=== PATIENT | male | born 1950 | race Caucasian/White ===

== ENCOUNTER → 2019-01-02 14:23 | Day surgery (SDC) | payer BC ==
--- NOTE | 2018-12-26 20:01 | HP ---
CC: Dr. Juan Paez; Dr. Hector Grace * ADMITTING HISTORY AND PHYSICAL: DATE OF ADMISSION: 01/02/19 ADMITTING DIAGNOSES: 1. Left renal calculus. 2. Hematuria. PLANNED PROCEDURE: Shockwave lithotripsy of left renal calculus and left stent insertion. SURGEON: Dr. Whelan. HISTORY OF PRESENT ILLNESS: Uziel Erazo is a 68-year-old diabetic with history of gross hematuria, who was found on CT to have a 1.4-cm calculus in the left renal pelvis. PAST MEDICAL HISTORY: Significant for: 1. History of diabetes mellitus. 2. History of atrial flutter. PAST SURGICAL HISTORY: Significant for surgery for left orbital fracture in the remote past and RF ablation for the atrial flutter in the last few years. MEDICATIONS ON ADMISSION: Include: 1. Metformin 500 mg twice a day. 2. Dutasteride 0.5 mg daily. ALLERGIES: No known drug allergies. FAMILY HISTORY: Negative for stones. SOCIAL HISTORY: Smoking history: He is a former smoker who quit 10 years ago, and had a 40-pack year smoking history prior to that. REVIEW OF SYSTEMS: He denies any chest pain or shortness of breath. PHYSICAL EXAMINATION GENERAL: Reveals a pleasant, elderly gentleman. VITAL SIGNS: Blood pressure is 128/72, pulse 70 per minute and regular, temperature 96.5, oxygen saturation 97% on room air. LUNGS: Clear bilaterally. CARDIOVASCULAR: Regular rate and rhythm. S1, S2. ABDOMEN: Soft with mild left flank tenderness. IMPRESSION: A 68-year-old gentleman with recurrent episodes of hematuria secondary to a 1.4-cm calculus in the left renal pelvis. PLAN: Planned procedure is shockwave lithotripsy of left renal calculus and left stent insertion. [id number]/[facility] #: [id number] [facility]PITALRenetta
[~2019-01-02 14:23] MED LIST: Acetaminophen TAB* 325 MG ONE; Acetaminophen TAB* 325 MG PO PRN; Buffered Lidocaine 1% SYRIN* 1 ML/SYRINGE INTRADERM ONE; Dexamethasone IV* 4 MG/ML 1 ML (4 MG) IV SLOW PU ONE; Dexamethasone IV* 4 MG/ML 1 ML (4 MG) ONE; DiMENhydriNATE IV* 50 MG/ML VIAL IV PUSH PRN; EPHEDrine (Pressors)* 50 MG/ML VIAL ONE; Famotidine IV* 10 MG/ML 2 ML (20 mg) IV ONE; Famotidine IV* 10 MG/ML 2 ML (20 mg) ONE; Furosemide IV* 10 MG/ML 2 ML VIAL (20 MG) ONE; Iohexol 180 (CONTRAST) 10 ML SDV IV ONE; Lactated Ringers 1000 ML Bag* 1,000 ML IV SCH; Lidocaine 2% PF * 5 ML VIAL ONE; Metoclopramide IV* 5 MG/ML 2 ML VIAL ONE; Midazolam* 1 MG/ML 2 ML VIAL (2 MG) ONE; Naloxone* 0.4 MG/ML 1 ML VIAL IV PRN; Ondansetron INJ* 2 MG/ML VIAL ONE; Propofol* 10 MG/ML 20 ML BTL ONE; Succinylcholine* 20 MG/ML 10 ML VIAL ONE; cefTRIAXone(*) 2 GM ADDV.VIAL IVPB ONE; fentaNYL* 50 MCG/ML 2 ML VIAL (100 MCG VIAL) ONE; oxyCODONE TAB* 5 MG TAB ONE
[2019-01-02] MEDS: fentaNYL* 50 MCG/ML 2 ML VIAL (100 MCG VIAL) IV PRN ×3 (19:19→20:08)
[2019-01-02] MEDS: oxyCODONE TAB* 5 MG TAB PO PRN ×2 (19:47→19:48)
[2019-01-02 20:45] VITALS: BP 142/93
--- NOTE | 2019-01-03 01:55 | OP ---
CC: Dr. Juan Paez * DATE OF OPERATION: 01/02/19 - SDS DATE OF : 46 SURGEON: Pernell Whelan MD. ANESTHESIOLOGIST: Dr. Borrero. ANESTHESIA: General. PRE-OP DIAGNOSIS: Left renal calculus. POST-OP DIAGNOSIS: Left renal calculus. OPERATIVE PROCEDURES: 1. Shockwave lithotripsy of left renal calculus. 2. Cystoscopy, left retrograde and left stent insertion. COMPLICATIONS: None. POSTOPERATIVE CONDITION: Stable. STENT USED: A 7-Beninese stent, left ureter. OPERATIVE FINDINGS: 1. Moderately enlarged prostate. 2. Few small bladder calculi. 3. Large left renal pelvic calculus. INDICATIONS: Uziel Erazo is a 68-year-old gentleman who was evaluated for hematuria and found to have a 1.4 cm calculus in the left renal pelvis. DESCRIPTION OF PROCEDURE: After induction of general anesthesia, the patient was placed on the lithotripsy table in supine position. The calculus in the renal pelvis was localized using fluoroscopy. Shockwave lithotripsy was commenced at a rate of 90 shocks per minute. Periodic imaging revealed adequate localization and a fairly big fragment of the stone appeared to break off and it was separately targeted under fluoroscopic monitoring. In total, a total of 3000 shocks were administered during the procedure. Next, the patient was placed in dorsal lithotomy position and cystoscopy was performed. The urethra appeared normal. The prostate was moderately enlarged. Few small bladder calculi were noted, which were fragmented and irrigated out. A left retrograde pyelogram did not reveal any evidence of obstruction, and a 7- Beninese stent was introduced and positioned under fluoroscopy with good proximal and distal positioning obtained. A Fernandez catheter was placed with temporary bladder drainage. The patient tolerated the procedure satisfactorily and was transferred back to the recovery area in stable condition. [id number]/[facility] #: [id number] [facility]
== END | disposition home or self-care (01) ==
LOC: OR 14:23
PROVIDERS: ATTEND Urology
DX: N20.0 Calculus of kidney (principal); R31.0 Gross hematuria; E11.9 Type 2 diabetes mellitus without complications; Z79.84 Long term (current) use of oral hypoglycemic drugs; I48.92 Unspecified atrial flutter; Z87.891 Personal history of nicotine dependence
CPT/HCPCS: 36415; 74018; A9270-GY; C1876; J0330; J0696; J1100; J1940; J2250; J2405; J2704; J2765; J3010